=== PATIENT | male | born 1945 | race Caucasian/White ===

== ENCOUNTER 2017-08-20 08:17 | Outpatient (CLI) ==
--- NOTE | 2017-08-20 09:29 | US ---
EXAM: Renal ultrasound. History: Chronic kidney disease and hypertension. Technique: Multiple sonographic images through the kidneys were obtained. Color duplex Doppler was used to interrogate vascular flow. Findings: The right kidney measures 12 cm in long length demonstrating increased cortical echogenicity without evidence for hydronephrosis, mass or shadowing calculus. The visualized bladder demonstrates no gross abnormality. Left kidney measures 13 cm in long length demonstrating increased cortical echogenicity without evide nce for hydronephrosis, mass or shadowing calculus. Impression: 1. Increased cortical echogenicity of bilateral kidneys compatible with medical renal disease. 2. No hydronephrosis
--- NOTE | 2017-08-20 09:31 | US ---
EXAM: Renal arterial Doppler History: Chronic kidney disease and hypertension. Technique: Multiple sonographic images through the kidneys were obtained. Color duplex Doppler was used to interrogate vascular flow. Findings: Right kidney measures 11.2 cm in long length without evidence for hydronephrosis, mass or shadowing c alculus. The left kidney measures 13 cm in long length without evidence for hydronephrosis, mass or shadowing calculus. The renal arteries were not well seen due to body habitus. Impression: The renal arteries were not well seen due to body habitus. Recommend correlation with C TA of the renal arteries. No hydronephrosis.
== END 2017-08-20 08:18 | disposition home or self-care (01) ==
LOC: RAD 08:17
PROVIDERS: ATTEND Specialist
DX: N18.3 Chronic kidney disease, stage 3 (moderate) (principal); I10 Essential (primary) hypertension
CPT/HCPCS: 36415; 76770; 80069; 81001; 82570; 83970; 84156; 84165; 84550; 85027

== ENCOUNTER 2018-06-12 10:20 | Outpatient (CLI) | END 2018-06-12 10:21 | disposition home or self-care (01) | LOC: WOUND 10:20 | PROVIDERS: ATTEND Nurse Practitioner Family | DX: L97.812 Non-pressure chronic ulcer of other part of right lower leg with fat layer exposed (principal); L97.822 Non-pressure chronic ulcer of other part of left lower leg with fat layer exposed; S80.811A Abrasion, right lower leg, initial encounter; E08.622 Diabetes mellitus due to underlying condition with other skin ulcer | CPT/HCPCS: 87070; 87186 ==

== ENCOUNTER 2018-06-19 10:50 | Outpatient (CLI) | END 2018-06-19 10:51 | disposition home or self-care (01) | LOC: WOUND 10:50 | PROVIDERS: ATTEND Nurse Practitioner Family | DX: L97.812 Non-pressure chronic ulcer of other part of right lower leg with fat layer exposed (principal); L97.822 Non-pressure chronic ulcer of other part of left lower leg with fat layer exposed; S80.811A Abrasion, right lower leg, initial encounter; E08.622 Diabetes mellitus due to underlying condition with other skin ulcer | CPT/HCPCS: 11042; 11045 ==

== ENCOUNTER 2018-07-03 09:44 | Outpatient (CLI) | payer OTHER | END 2018-07-03 09:45 | disposition home or self-care (01) | LOC: WOUND 09:44 | PROVIDERS: ATTEND Nurse Practitioner Family | DX: L97.812 Non-pressure chronic ulcer of other part of right lower leg with fat layer exposed (principal); L97.822 Non-pressure chronic ulcer of other part of left lower leg with fat layer exposed; S80.811A Abrasion, right lower leg, initial encounter; E08.622 Diabetes mellitus due to underlying condition with other skin ulcer | CPT/HCPCS: 87070; 87186 ==

== ENCOUNTER 2018-08-14 09:39 | Outpatient (CLI) | END 2018-08-14 09:40 | disposition home or self-care (01) | LOC: WOUND 09:39 | PROVIDERS: ATTEND Nurse Practitioner Family | DX: L97.812 Non-pressure chronic ulcer of other part of right lower leg with fat layer exposed (principal); L97.822 Non-pressure chronic ulcer of other part of left lower leg with fat layer exposed; S80.811A Abrasion, right lower leg, initial encounter; E08.622 Diabetes mellitus due to underlying condition with other skin ulcer | CPT/HCPCS: 11042; 97597 ==

== ENCOUNTER 2018-08-21 09:42 | Outpatient (CLI) | payer OTHER | END 2018-08-21 09:43 | disposition home or self-care (01) | LOC: WOUND 09:42 | PROVIDERS: ATTEND Nurse Practitioner Family | DX: L97.812 Non-pressure chronic ulcer of other part of right lower leg with fat layer exposed (principal); L97.822 Non-pressure chronic ulcer of other part of left lower leg with fat layer exposed; S80.811A Abrasion, right lower leg, initial encounter | CPT/HCPCS: 99214 ==

== ENCOUNTER 2018-08-28 09:46 | Outpatient (CLI) | END 2018-08-28 09:47 | disposition home or self-care (01) | LOC: WOUND 09:46 | PROVIDERS: ATTEND Nurse Practitioner Family | DX: L97.812 Non-pressure chronic ulcer of other part of right lower leg with fat layer exposed (principal); L97.822 Non-pressure chronic ulcer of other part of left lower leg with fat layer exposed; E08.622 Diabetes mellitus due to underlying condition with other skin ulcer | CPT/HCPCS: 11042 ==

== ENCOUNTER 2018-09-04 09:29 | Outpatient (CLI) | payer OTHER | END 2018-09-04 09:30 | disposition home or self-care (01) | LOC: WOUND 09:29 | PROVIDERS: ATTEND Nurse Practitioner Family | DX: L97.812 Non-pressure chronic ulcer of other part of right lower leg with fat layer exposed (principal); L97.822 Non-pressure chronic ulcer of other part of left lower leg with fat layer exposed; E08.622 Diabetes mellitus due to underlying condition with other skin ulcer | CPT/HCPCS: 11042 ==

== ENCOUNTER 2018-09-18 09:35 | Outpatient (CLI) | payer OTHER | END 2018-09-18 09:36 | disposition home or self-care (01) | LOC: WOUND 09:35 | PROVIDERS: ATTEND Nurse Practitioner Family | DX: L97.812 Non-pressure chronic ulcer of other part of right lower leg with fat layer exposed (principal); L97.822 Non-pressure chronic ulcer of other part of left lower leg with fat layer exposed; E08.622 Diabetes mellitus due to underlying condition with other skin ulcer | CPT/HCPCS: 11042; 97597 ==

== ENCOUNTER 2018-09-25 09:47 | Outpatient (CLI) | END 2018-09-25 09:48 | disposition home or self-care (01) | LOC: WOUND 09:47 | PROVIDERS: ATTEND Nurse Practitioner Family | DX: L97.812 Non-pressure chronic ulcer of other part of right lower leg with fat layer exposed (principal); L97.822 Non-pressure chronic ulcer of other part of left lower leg with fat layer exposed; E08.622 Diabetes mellitus due to underlying condition with other skin ulcer | CPT/HCPCS: 11042; 97597 ==

== ENCOUNTER 2018-10-02 09:47 | Outpatient (CLI) | END 2018-10-02 09:48 | disposition home or self-care (01) | LOC: WOUND 09:47 | PROVIDERS: ATTEND Nurse Practitioner Family | DX: L97.812 Non-pressure chronic ulcer of other part of right lower leg with fat layer exposed (principal); L97.822 Non-pressure chronic ulcer of other part of left lower leg with fat layer exposed; E08.622 Diabetes mellitus due to underlying condition with other skin ulcer | CPT/HCPCS: 11042 ==

== ENCOUNTER 2018-10-09 10:01 | Outpatient (CLI) | END 2018-10-09 10:02 | disposition home or self-care (01) | LOC: WOUND 10:01 | PROVIDERS: ATTEND Nurse Practitioner Family | DX: L97.812 Non-pressure chronic ulcer of other part of right lower leg with fat layer exposed (principal); L97.822 Non-pressure chronic ulcer of other part of left lower leg with fat layer exposed; E08.622 Diabetes mellitus due to underlying condition with other skin ulcer | CPT/HCPCS: 87070; 87186 ==

== ENCOUNTER 2018-10-16 10:18 | Outpatient (CLI) | payer OTHER | END 2018-10-16 10:19 | disposition home or self-care (01) | LOC: WOUND 10:18 | PROVIDERS: ATTEND Nurse Practitioner Family | DX: L97.812 Non-pressure chronic ulcer of other part of right lower leg with fat layer exposed (principal); L97.822 Non-pressure chronic ulcer of other part of left lower leg with fat layer exposed; E08.622 Diabetes mellitus due to underlying condition with other skin ulcer ==

== ENCOUNTER 2018-10-23 10:00 | Outpatient (CLI) | END 2018-10-23 10:01 | disposition home or self-care (01) | LOC: WOUND 10:00 | PROVIDERS: ATTEND Nurse Practitioner Family | DX: L97.812 Non-pressure chronic ulcer of other part of right lower leg with fat layer exposed (principal); L97.822 Non-pressure chronic ulcer of other part of left lower leg with fat layer exposed; E08.622 Diabetes mellitus due to underlying condition with other skin ulcer ==

== ENCOUNTER 2018-11-15 18:08 | Outpatient (CLI) | payer OTHER | END 2018-11-15 18:29 | disposition short-term general hospital (02) | LOC: AMBL 18:08 | PROVIDERS: ATTEND Family Medicine | DX: K62.5 Hemorrhage of anus and rectum (principal); L97.929 Non-pressure chronic ulcer of unspecified part of left lower leg with unspecified severity; L97.919 Non-pressure chronic ulcer of unspecified part of right lower leg with unspecified severity ==

== ENCOUNTER 2018-11-20 09:47 | Outpatient (CLI) | END 2018-11-20 09:48 | disposition home or self-care (01) | LOC: WOUND 09:47 | PROVIDERS: ATTEND Nurse Practitioner Family | DX: L97.812 Non-pressure chronic ulcer of other part of right lower leg with fat layer exposed (principal); L97.822 Non-pressure chronic ulcer of other part of left lower leg with fat layer exposed; E08.622 Diabetes mellitus due to underlying condition with other skin ulcer | CPT/HCPCS: 11042 ==

== ENCOUNTER 2018-11-27 09:18 | Outpatient (CLI) | payer OTHER | END 2018-11-27 09:19 | disposition home or self-care (01) | LOC: WOUND 09:18 | PROVIDERS: ATTEND Nurse Practitioner Family | DX: L97.812 Non-pressure chronic ulcer of other part of right lower leg with fat layer exposed (principal); L97.822 Non-pressure chronic ulcer of other part of left lower leg with fat layer exposed; E08.622 Diabetes mellitus due to underlying condition with other skin ulcer ==

== ENCOUNTER 2018-12-04 10:13 | Outpatient (CLI) | END 2018-12-04 10:14 | disposition home or self-care (01) | LOC: WOUND 10:13 | PROVIDERS: ATTEND Nurse Practitioner Family | DX: L97.812 Non-pressure chronic ulcer of other part of right lower leg with fat layer exposed (principal); L97.822 Non-pressure chronic ulcer of other part of left lower leg with fat layer exposed; E08.622 Diabetes mellitus due to underlying condition with other skin ulcer | CPT/HCPCS: 11042; 11045; 97597 ==

== ENCOUNTER 2018-12-11 09:39 | Outpatient (CLI) | payer OTHER | END 2018-12-11 09:40 | disposition home or self-care (01) | LOC: WOUND 09:39 | PROVIDERS: ATTEND Nurse Practitioner Family | DX: L97.812 Non-pressure chronic ulcer of other part of right lower leg with fat layer exposed (principal); L97.822 Non-pressure chronic ulcer of other part of left lower leg with fat layer exposed; E08.622 Diabetes mellitus due to underlying condition with other skin ulcer ==

== ENCOUNTER 2018-12-18 09:37 | Outpatient (CLI) | END 2018-12-18 09:38 | disposition home or self-care (01) | LOC: WOUND 09:37 | PROVIDERS: ATTEND Nurse Practitioner Family | DX: L97.812 Non-pressure chronic ulcer of other part of right lower leg with fat layer exposed (principal); L97.822 Non-pressure chronic ulcer of other part of left lower leg with fat layer exposed; E08.622 Diabetes mellitus due to underlying condition with other skin ulcer ==

== ENCOUNTER 2018-12-25 09:50 | Outpatient (CLI) | END 2018-12-25 09:51 | disposition home or self-care (01) | LOC: WOUND 09:50 | PROVIDERS: ATTEND Nurse Practitioner Family | DX: L97.812 Non-pressure chronic ulcer of other part of right lower leg with fat layer exposed (principal); L97.822 Non-pressure chronic ulcer of other part of left lower leg with fat layer exposed; E08.622 Diabetes mellitus due to underlying condition with other skin ulcer ==

== ENCOUNTER 2019-01-01 09:45 | Outpatient (CLI) | END 2019-01-01 09:46 | disposition home or self-care (01) | LOC: WOUND 09:45 | PROVIDERS: ATTEND Nurse Practitioner Family | DX: L97.812 Non-pressure chronic ulcer of other part of right lower leg with fat layer exposed (principal); L97.822 Non-pressure chronic ulcer of other part of left lower leg with fat layer exposed; E08.622 Diabetes mellitus due to underlying condition with other skin ulcer | CPT/HCPCS: 11042 ==

== ENCOUNTER 2019-01-08 09:27 | Outpatient (CLI) | END 2019-01-08 09:28 | disposition home or self-care (01) | LOC: WOUND 09:27 | PROVIDERS: ATTEND Nurse Practitioner Family | DX: L97.812 Non-pressure chronic ulcer of other part of right lower leg with fat layer exposed (principal); L97.822 Non-pressure chronic ulcer of other part of left lower leg with fat layer exposed; E08.622 Diabetes mellitus due to underlying condition with other skin ulcer ==

== ENCOUNTER 2019-01-15 09:37 | Outpatient (CLI) | payer OTHER | END 2019-01-15 09:38 | disposition home or self-care (01) | LOC: WOUND 09:37 | PROVIDERS: ATTEND Nurse Practitioner Family | DX: L97.812 Non-pressure chronic ulcer of other part of right lower leg with fat layer exposed (principal); L97.822 Non-pressure chronic ulcer of other part of left lower leg with fat layer exposed; E08.622 Diabetes mellitus due to underlying condition with other skin ulcer | CPT/HCPCS: 11042 ==

== ENCOUNTER 2019-01-22 09:25 | Outpatient (CLI) | END 2019-01-22 09:26 | disposition home or self-care (01) | LOC: WOUND 09:25 | PROVIDERS: ATTEND Nurse Practitioner Family | DX: L97.812 Non-pressure chronic ulcer of other part of right lower leg with fat layer exposed (principal); L97.822 Non-pressure chronic ulcer of other part of left lower leg with fat layer exposed; E08.622 Diabetes mellitus due to underlying condition with other skin ulcer ==

== ENCOUNTER 2019-01-29 09:34 | Outpatient (CLI) | END 2019-01-29 09:35 | disposition home or self-care (01) | LOC: WOUND 09:34 | PROVIDERS: ATTEND Nurse Practitioner Family | DX: L97.812 Non-pressure chronic ulcer of other part of right lower leg with fat layer exposed (principal); L97.822 Non-pressure chronic ulcer of other part of left lower leg with fat layer exposed; E08.622 Diabetes mellitus due to underlying condition with other skin ulcer ==